=== PATIENT | female | born 1950 | race Asian ===

== ENCOUNTER 2017-08-27 19:40 | Inpatient (IN) | payer MEDICARE ==
[~2017-08-27] VITALS: Ht 152.4 cm; Wt 45.2 kg
[2017-08-27 19:40] VITALS: BP 176/106
[2017-08-27] MEDS ORDERED: METOPROLOL TART25 MG ORAL (20:02)
[2017-08-27] MEDS ORDERED: ESTRING1 EACH VG (20:02)
[2017-08-27] MEDS ORDERED: OMEPRAZOLE20 M3 ORAL (20:02)
[2017-08-27] MEDS ORDERED: TEMAZEPAM30 MG ORAL (20:02)
[2017-08-27] MEDS ORDERED: MIRALAX17 G2 ORAL (20:02)
[2017-08-27] MEDS ORDERED: ATORVASTATIN CA20 MG ORAL (20:02)
[2017-08-27] MEDS ORDERED: PHENYTOIN SODI100 MG ORAL (20:02)
[2017-08-27] MEDS ORDERED: VITAMIN B122500 MCG PO (20:02)
[2017-08-27] MEDS ORDERED: CALCIUM + D3 E1 EACH PO (20:02)
[2017-08-27] MEDS ORDERED: FOSAMAX70 MG ORAL (20:02)
[2017-08-27] MEDS ORDERED: ZYPREXA10 MG ORAL (20:02)
[2017-08-27] MEDS ORDERED: LEVETIRACETAM1000 MG ORAL (20:02)
[2017-08-27] MEDS ORDERED: ASPIRIN81 MG ORAL (20:02)
[2017-08-27] MEDS ORDERED: MELOXICAM7.5 MG PO (20:02)
[2017-08-27] MEDS ORDERED: TAMSULOSIN HCL0.4 MG ORAL (20:02)
[2017-08-27] MEDS ORDERED: DOUBLE ANTIBI28.4 GM TP (20:02)
[2017-08-27] MEDS ORDERED: METFORMIN HCL500 M1 ORAL (20:02)
[2017-08-27] MEDS ORDERED: OXYBUTYNIN CHLOR5 M1 ORAL (20:02)
[2017-08-27] MEDS ORDERED: SUPER B COMPLE150 MG PO (20:02)
[2017-08-27 20:17] LABS: EOSINOPHILS % (AUTO) 1.8 % (0.0-3.0); LYMPHOCYTES % (AUTO) 10.6 % (20.0-45.0); MEAN CORPUSCULAR HEMOGLOBIN 28.9 PG (27.0-31.0); MEAN CORPUSCULAR HGB CONC 31.8 G/DL (32.0-36.0); MEAN CORPUSCULAR VOLUME 91 FL (80-99); MEAN PLATELET VOLUME 4.9 FL (6.5-10.1); MONOCYTES % (AUTO) 6.3 % (1.0-10.0); NEUTROPHILS % (AUTO) 80.3 % (45.0-75.0); PLATELET COUNT 274 K/UL (150-450); RED BLOOD COUNT 3.48 M/UL (4.20-5.40); RED CELL DISTRIBUTION WIDTH 11.7 % (11.6-14.8); WHITE BLOOD COUNT 11.9 K/UL (4.8-10.8)
[2017-08-27] MEDS ORDERED: LORazepam Inj 2mg/ml 1ml IV ONE (20:30)
[2017-08-27 20:48] LABS: TROPONIN I < 0.30 ng/mL (<=0.30)
--- NOTE | 2017-08-27 20:49 | Emergency Room Report ---
History of Present Illness General Chief Complaint: Dyspnea/Respdistress Source: Medical Record Present Illness HPI 67YOF with acute SOB from SNF Patient not providing much HPI In significant distress HPI limited by patient's condition Spoke to Rodney Doc 08/21: na 120 on 08/24: Na 136 History of psychogenic polydipsia Urgent care visit for hypoNa Multiple visits to ICU/hospital hyponatremia Plan was to try water limiting at SNF but patient allegedly finding ways to continue to drink water History of dementia, schizophrenia as well Allergies: Coded Allergies: CLONAZEPAM (Verified Allergy, Unknown, 08/27/17) IBUPROFEN (Verified Allergy, Unknown, 08/27/17) PROPRANOLOL (Verified Allergy, Unknown, 08/27/17) Uncoded Allergies: HYDROCHRIDE (Allergy, Unknown, 08/27/17) Patient History Limited by: medical condition Past Medical History: dementia, other - hyponatremia Past Surgical History: unable to obtain Pertinent Family History: unable to obtain Social History: Denies: smoking, alcohol use, drug use Last Menstrual Period: none Now: No Immunizations: UTD Reviewed Nursing Documentation: PMH: Agreed, PSxH: Agreed Nursing Documentation-PMH Hx Diabetes: Yes - type 2 dm Review of Systems All Other Systems: limited - D/t serious of presentation Physical Exam Vital Signs Date Time Temp Pulse Resp B/P (MAP) Pulse Ox O2 Delivery O2 Flow Rate FiO2 08/27/17 19:32 94.5 88 24 176/102 94 Room Air 08/27/17 19:40 50 Sp02 EP Interpretation: reviewed, abnormal General Appearance: normal inspection, well appearing, no apparent distress, alert, GCS 15, severe distress Head: normocephalic, atraumatic Eyes: bilateral eye PERRL, bilateral eye EOMI ENT: normal ENT inspection, hearing grossly normal, normal voice Neck: normal inspection, full range of motion, supple, no bony tend Respiratory: normal inspection, lungs clear, normal breath sounds, no respiratory distress, no retraction, no wheezing, decreased breath sounds, accessory muscle use, rales Cardiovascular #1: regular rate, rhythm, no edema, JVD Gastrointestinal: normal inspection, normal bowel sounds, non tender, soft, no guarding, no hernia Genitourinary: no CVA tenderness Musculoskeletal: normal inspection, back normal, normal range of motion, Jose' s Sign negative Neurologic: normal inspection, alert, responsive, speech normal Psychiatric: normal inspection, judgement/insight normal, mood/affect normal Skin: normal inspection, normal color, no rash Lymphatic: normal inspection Medical Decision Making Diagnostic Impression: Primary Impression: Dyspnea Qualified Codes: R06.00 - Dyspnea, unspecified Additional Impressions: CHF (congestive heart failure) Qualified Codes: I50.9 - Heart failure, unspecified Hyponatremia Psychogenic polydipsia ER Course Received approval for admission here to ICU by [facility] authorization number Endorsed to Dr Martinez at 930pm Recommended combination of lasix and NS IVF for severe hypoNa and CHF Patient with improved respiration on Bipap Not hypoxic or lethargic. Patent airway Patient likely drank herself into florrid pulm edema/hypoNa from polydisia psychogenic EKG Diagnostic Results Rate: normal Rhythm: NSR ST Segments: no acute changes ASA given to the pt in ED: No Rhythm Strip Diag. Results EP Interpretation: yes Rate: 95 Rhythm: NSR, no PVC's, no ectopy Chest X-Ray Diagnostic Results Chest X-Ray Diagnostic Results : Chest X-Ray Ordered: Yes # of Views/Limited/Complete: 1 View Indication: Shortness of Breath EP Interpretation: Yes Interpretation: no consolidation, no effusion, no pneumothorax, other - Pulm congestion Electronically Signed by: Dr Sanchez Zimmer MD Last Vital Signs Date Time Temp Pulse Resp B/P (MAP) Pulse Ox O2 Delivery O2 Flow Rate FiO2 08/27/17 19:40 97.6 98 29 176/106 100 Bi-pap 50 Status: improved Disposition: ADMITTED INPATIENT Condition: Critical SANCHEZ ZIMMER M.D. Aug 27, 2017 20:49
[2017-08-27 20:51] LABS: ALANINE AMINOTRANSFERASE 18 U/L (3-33); ALBUMIN/GLOBULIN RATIO 1.9 (1.0-2.7); ANION GAP 17 (5-15); ASPARTATE AMINO TRANSFERASE 27 U/L (5-40); CALCIUM 7.9 mg/dL (8.6-10.2); CARBON DIOXIDE 20 mEQ/L (20-30); CHLORIDE 71 mEQ/L (98-107); CREATININE 0.6 mg/dL (0.5-0.9); GLOMERULAR FILTRATION RATE > 60 mL/min (>60); HEMOLYSIS 10; POTASSIUM 4.1 mEQ/L (3.4-4.9); TOTAL PROTEIN 6.1 g/dL (6.6-8.7)
[2017-08-27 20:54] LABS: SODIUM 108 mEQ/L (135-145)
[2017-08-27 21:01] LABS: CKMB 3.8 ng/mL (< 3.8)
[2017-08-27 22:05] VITALS: BP 170/98
[2017-08-27 23:20] VITALS: BP 172/99
[2017-08-27] MEDS ORDERED: Miralax 17gm pkt ORAL PRN (23:30)
[2017-08-27] MEDS ORDERED: Albuterol/Ipratropium 3ml neb HHN PRN (23:30)
[2017-08-28] VITALS (24 sets, daily range): BP systolic 100–185; BP diastolic 2–114
[2017-08-28] MEDS: LORazepam Inj 2mg/ml 1ml IV PRN ×5 (01:47→22:45)
[2017-08-28 06:12] LABS: BASOPHILS % (AUTO) 0.4 % (0.0-2.0); EOSINOPHILS % (AUTO) 0.1 % (0.0-3.0); LYMPHOCYTES % (AUTO) 6.9 % (20.0-45.0); MEAN CORPUSCULAR HEMOGLOBIN 31.3 PG (27.0-31.0); MEAN CORPUSCULAR HGB CONC 35.6 G/DL (32.0-36.0); MEAN CORPUSCULAR VOLUME 88 FL (80-99); MEAN PLATELET VOLUME 5.4 FL (6.5-10.1); MONOCYTES % (AUTO) 9.8 % (1.0-10.0); NEUTROPHILS % (AUTO) 82.8 % (45.0-75.0); PLATELET COUNT 297 K/UL (150-450); RED BLOOD COUNT 3.66 M/UL (4.20-5.40); RED CELL DISTRIBUTION WIDTH 11.4 % (11.6-14.8); WHITE BLOOD COUNT 11.1 K/UL (4.8-10.8)
[2017-08-28 06:24] LABS: ANION GAP 12 (5-15); CALCIUM 8.2 mg/dL (8.6-10.2); CARBON DIOXIDE 26 mEQ/L (20-30); CHLORIDE 79 mEQ/L (98-107); CREATININE 0.4 mg/dL (0.5-0.9); GLOMERULAR FILTRATION RATE > 60 mL/min (>60); HEMOLYSIS 0; PHOSPHORUS 2.9 mg/dL (2.5-4.8); POTASSIUM 3.2 mEQ/L (3.4-4.9)
[2017-08-28 06:25] LABS: ALANINE AMINOTRANSFERASE 18 U/L (3-33); ALBUMIN/GLOBULIN RATIO 1.8 (1.0-2.7); ANION GAP 13 (5-15); ASPARTATE AMINO TRANSFERASE 31 U/L (5-40); CALCIUM 8.3 mg/dL (8.6-10.2); CARBON DIOXIDE 26 mEQ/L (20-30); CHLORIDE 80 mEQ/L (98-107); CREATININE 0.4 mg/dL (0.5-0.9); GLOMERULAR FILTRATION RATE > 60 mL/min (>60); HEMOLYSIS 0; POTASSIUM 3.2 mEQ/L (3.4-4.9); TOTAL PROTEIN 6.2 g/dL (6.6-8.7); TROPONIN I < 0.30 ng/mL (<=0.30)
[2017-08-28 06:26] LABS: URIC ACID 2.3 mg/dL (3.0-7.5)
[2017-08-28 06:30] LABS: APPEARANCE,URINE CLEAR; KETONES,URINE NEGATIVE (NEGATIVE); LEUKOCYTE ESTERASE ,URINE NEGATIVE (NEGATIVE); NITRITE,URINE NEGATIVE (NEGATIVE); PH,URINE 8 (4.5-8.0); PROTEIN,URINE NEGATIVE (NEGATIVE); UROBILINOGEN,URINE NORMAL MG/DL (0.0-1.0)
[2017-08-28 06:31] LABS: SODIUM 117 mEQ/L (135-145)
[2017-08-28 06:39] LABS: SODIUM 119 mEQ/L (135-145)
[2017-08-28 06:41] LABS: THYROID STIMULATING HORMONE 0.228 uIU/mL (0.300-4.500)
[2017-08-28 07:00] LABS: BACTERIA,URINE OCCASIONAL /HPF; SQUAMOUS EPITHELIAL CELL,UR OCCASIONAL /LPF (NONE/OCC); WBC,URINE 0-2 /HPF (0 - 2)
--- NOTE | 2017-08-28 07:41 | Pulmonolgy Critical Care Note ---
Critical Care - Asmt/Plan Problems: (1) Acute encephalopathy (2) Hyponatremia (3) Psychogenic polydipsia (4) Urinary retention Respiratory: monitor respiratory rate, adjust FIO2 Cardiac: continue to monitor HR/BP Renal: F/U I&O, other - keep lasix Gastrointestinal: start feedings Endocrine: monitor blood sugar Hematologic: monitor H/H Neurologic: PRN Ativan Affect: PRN ativan Prophylaxis: Protonix Time Spent (Minutes): 40 Notes Reviewed: architectural superintendent Discussed with: nurses, consultants, disease case managerreal estate asset manager - Objective Last 24 Hour Vital Signs Date Time Temp Pulse Resp B/P (MAP) Pulse Ox O2 Delivery O2 Flow Rate FiO2 08/28/17 07:00 83 20 115/44 100 2.0 08/28/17 06:00 111 28 161/65 100 2.0 08/28/17 05:00 91 22 155/51 100 2.0 08/28/17 04:00 96 08/28/17 04:00 98.8 93 21 132/49 100 2.0 08/28/17 03:00 102 29 158/48 100 2.0 08/28/17 02:00 112 27 180/74 99 2.0 08/28/17 01:30 100 2.0 28 08/28/17 01:00 110 36 185/88 98 2.0 08/28/17 00:05 121 08/28/17 00:05 97.9 121 35 157/114 98 2.0 08/27/17 23:50 97.8 98 29 172/99 100 14.0 50 08/27/17 23:30 90 29 100 Facial 50 08/27/17 23:20 98 29 172/99 100 14.0 50 08/27/17 22:06 92 28 100 Facial 50 08/27/17 22:05 97.8 84 28 170/98 100 14.0 50 08/27/17 20:36 100 30 100 Facial 50 08/27/17 19:45 14.0 50 08/27/17 19:40 97.6 98 29 176/106 100 Bi-pap 50 08/27/17 19:40 98 29 Bi-pap 50 08/27/17 19:32 94.5 88 24 176/102 94 Room Air Status: awake Condition: critical HEENT: atraumatic Neck: full ROM Heart: HR/BP stable Abdomen: feeding tube Extremities: no C/C/E, edema Critical Care - Subjective ROS Limited/Unobtainable: Yes ICU Day: 1 Interval Events: 67 year old female with history of dementia, schizophrenia, psychogenic polydipsia with acute SOB from SNF. She was not cooperative in providing history. She was admitted to ICU for metabolic encephalopathy caused by hyponatremia. Condition: critical EKG Rhythm: Sinus Rhythm FI02: 28 Sputum Amount: None Fluids: d5 NS 100 CXR: cephalization, IZZY Labs: Laboratory Tests Test 08/27/17 19:43 08/28/17 04:00 08/28/17 04:50 White Blood Count 11.9 K/UL (4.8-10.8) H 11.1 K/UL (4.8-10.8) H Red Blood Count 3.48 M/UL (4.20-5.40) L 3.66 M/UL (4.20-5.40) L Hemoglobin 10.1 G/DL (12.0-16.0) L 11.5 G/DL (12.0-16.0) L Hematocrit 31.7 % (37.0-47.0) L 32.2 % (37.0-47.0) L Mean Corpuscular Volume 91 FL (80-99) 88 FL (80-99) Mean Corpuscular Hemoglobin 28.9 PG (27.0-31.0) 31.3 PG (27.0-31.0) H Mean Corpuscular Hemoglobin Concent 31.8 G/DL (32.0-36.0) L 35.6 G/DL (32.0-36.0) Red Cell Distribution Width 11.7 % (11.6-14.8) 11.4 % (11.6-14.8) L Platelet Count 274 K/UL (150-450) 297 K/UL (150-450) Mean Platelet Volume 4.9 FL (6.5-10.1) L 5.4 FL (6.5-10.1) L Neutrophils (%) (Auto) 80.3 % (45.0-75.0) H 82.8 % (45.0-75.0) H Lymphocytes (%) (Auto) 10.6 % (20.0-45.0) L 6.9 % (20.0-45.0) L Monocytes (%) (Auto) 6.3 % (1.0-10.0) 9.8 % (1.0-10.0) Eosinophils (%) (Auto) 1.8 % (0.0-3.0) 0.1 % (0.0-3.0) Basophils (%) (Auto) 1.0 % (0.0-2.0) 0.4 % (0.0-2.0) Sodium Level 108 mEQ/L (135-145) *L 117 mEQ/L (135-145) *L Potassium Level 4.1 mEQ/L (3.4-4.9) 3.2 mEQ/L (3.4-4.9) L Chloride Level 71 mEQ/L (98-107) L 79 mEQ/L (98-107) L Carbon Dioxide Level 20 mEQ/L (20-30) 26 mEQ/L (20-30) Anion Gap 17 (5-15) H 12 (5-15) Blood Urea Nitrogen 5 mg/dL (7-23) L 7 mg/dL (7-23) Creatinine 0.6 mg/dL (0.5-0.9) 0.4 mg/dL (0.5-0.9) L Estimat Glomerular Filtration Rate > 60 mL/min (>60) > 60 mL/min (>60) Glucose Level 196 mg/dL (74-106) H 136 mg/dL (74-106) H Calcium Level 7.9 mg/dL (8.6-10.2) L 8.2 mg/dL (8.6-10.2) L Total Bilirubin 0.2 mg/dL (0.0-1.2) 0.4 mg/dL (0.0-1.2) Aspartate Amino Transf (AST/SGOT) 27 U/L (5-40) 31 U/L (5-40) Alanine Aminotransferase (ALT/SGPT) 18 U/L (3-33) 18 U/L (3-33) Alkaline Phosphatase 115 U/L (35-104) H 113 U/L (35-104) H Total Creatine Kinase 161 U/L (26-140) H Creatine Kinase MB 3.8 ng/mL (< 3.8) Creatine Kinase MB Relative Index 2.3 Troponin I < 0.30 ng/mL (<=0.30) < 0.30 ng/mL (<=0.30) Pro-B-Type Natriuretic Peptide 1444 pg/mL (0-125) H Pending Total Protein 6.1 g/dL (6.6-8.7) L 6.2 g/dL (6.6-8.7) L Albumin 4.0 g/dL (3.5-5.2) 3.9 g/dL (3.5-5.2) Globulin 2.1 g/dL 2.2 g/dL Albumin/Globulin Ratio 1.9 (1.0-2.7) 1.8 (1.0-2.7) Urine Color Pale yellow Urine Appearance Clear Urine pH 8 (4.5-8.0) Urine Specific [place] 1.010 (1.005-1.035) Urine Protein Negative (NEGATIVE) Urine Glucose (UA) Negative (NEGATIVE) Urine Ketones Negative (NEGATIVE) Urine Occult Blood 2+ (NEGATIVE) H Urine Nitrite Negative (NEGATIVE) Urine Bilirubin Negative (NEGATIVE) Urine Urobilinogen Normal MG/DL (0.0-1.0) Urine Leukocyte Esterase Negative (NEGATIVE) Urine RBC 2-4 /HPF (0 - 2) H Urine WBC 0-2 /HPF (0 - 2) Urine Squamous Epithelial Cells Occasional /LPF Urine Bacteria Occasional /HPF (NONE) Urine Osmolality Pending Urine Random Sodium Pending Osmolality Pending Uric Acid 2.3 mg/dL (3.0-7.5) L Phosphorus Level 2.9 mg/dL (2.5-4.8) Magnesium Level 1.6 mg/dL (1.7-2.5) L Thyroid Stimulating Hormone (TSH) 0.228 uIU/mL (0.300-4.500) Free Thyroxine 1.87 ng/dL (0.86-1.85) H Free Triiodothyronine Pending Cortisol Pending ARIC DOE Aug 28, 2017 07:40
[2017-08-28] MEDS: Heparin 5000 units/ml inj SUBQ SCH ×2 (08:59→20:42)
[2017-08-28] MEDS ORDERED: KCl 10% 40mEq/30ml liquid ORAL ONE (09:00)
[2017-08-28] MEDS ORDERED: Pantoprazole Inj IVP SCH (09:00)
--- NOTE | 2017-08-28 11:25 | Diagnostic Imaging Report ---
Indication: Dyspnea Comparison: None A single view chest radiograph was obtained. Findings: Parenchymal opacities are noted in the upper lobes bilaterally. Suspect chronic disease which may be confirmed with review of prior studies. Upper lobe infiltrate is not excluded. The heart is enlarged. Aorta is mildly enlarged and calcified. The bones are osteopenic. Impression: Bilateral upper lobe infiltrates versus chronic disease or scarring. Comparison to prior studies and clinical correlation recommended
--- NOTE | 2017-08-28 11:54 | Consultation ---
Consult Note Consult Note asked to eval for low Na 67YOF with acute SOB from SNF Patient not providing much HPI In significant distress HPI limited by patient's condition Spoke to [place] Doc 08/21: na 120 on 08/24: Na 136 History of psychogenic polydipsia Urgent care visit for hypoNa Multiple visits to ICU/hospital hyponatremia Plan was to try water limiting at SNF but patient allegedly finding ways to continue to drink water History of dementia, schizophrenia as well Allergies: CLONAZEPAM (Verified Allergy, Unknown, 08/27/17) IBUPROFEN (Verified Allergy, Unknown, 08/27/17) PROPRANOLOL (Verified Allergy, Unknown, 08/27/17) HYDROCHRIDE (Allergy, Unknown, 08/27/17) examined data reviewed Assessment/Plan Low Na likely Psychogenic vs SIADH DM High Cholestrol Psych disease Urinary retention GERD Sz disorders been on dilantin and keppra Plan: 3% saline- no LASIX PO fluid restriction Monitor lytes K supplement ASTON DILLON Aug 28, 2017 11:54
[2017-08-28 12:17] LABS: CHOLESTEROL/HDL RATIO 1.7 (3.3-4.4)
[2017-08-28] MEDS ORDERED: NaCl 3% 500ml 500 ML IV ONE (12:30)
--- NOTE | 2017-08-28 12:31 | Diagnostic Imaging Report ---
APPROVED REPORT CPT Code: 32271 Present Symptoms Shortness of breath Comments: R/O DVT BILATERAL: Imaging reveals a patent deep venous system bilaterally. There is no evidence of thrombus within the femoral, popliteal or tibial segments. The greater saphenous veins are also within normal limits. Doppler indicates normal spontaneous flow within these segments.
[2017-08-28] MEDS ORDERED: LORazepam Inj 2mg/ml 1ml IV PRN (15:24)
--- NOTE | 2017-08-28 15:55 | Cardiology Progress Note ---
Assessment/Plan Assessment/Plan need electrolyte repleated bb is remain tachy adjust dose fo synthoid as my be hyperthyroid now no sure if "chf" [id number] Objective Last 24 Hour Vital Signs Date Time Temp Pulse Resp B/P (MAP) Pulse Ox O2 Delivery O2 Flow Rate FiO2 08/28/17 15:00 99 20 132/27 100 Nasal Cannula 2.0 08/28/17 14:00 99 20 158/86 100 Nasal Cannula 2.0 08/28/17 13:00 81 20 134/47 100 Nasal Cannula 2.0 08/28/17 12:00 98.2 96 20 126/64 100 Nasal Cannula 2.0 08/28/17 12:00 89 08/28/17 11:00 94 20 100/2 100 Nasal Cannula 2.0 08/28/17 10:00 88 20 128/63 100 Nasal Cannula 2.0 08/28/17 09:00 86 20 121/47 100 Nasal Cannula 2.0 08/28/17 08:00 81 08/28/17 08:00 98.1 79 21 124/47 100 Nasal Cannula 2.0 08/28/17 07:44 Nasal Cannula 2.0 28 08/28/17 07:44 100 Nasal Cannula 2.0 28 08/28/17 07:43 81 18 Nasal Cannula 2.0 28 08/28/17 07:00 83 20 115/44 100 2.0 08/28/17 06:00 111 28 161/65 100 2.0 08/28/17 05:00 91 22 155/51 100 2.0 08/28/17 04:00 96 08/28/17 04:00 98.8 93 21 132/49 100 2.0 08/28/17 03:00 102 29 158/48 100 2.0 08/28/17 02:00 112 27 180/74 99 2.0 08/28/17 01:30 100 2.0 28 08/28/17 01:00 110 36 185/88 98 2.0 08/28/17 00:05 121 08/28/17 00:05 97.9 121 35 157/114 98 2.0 08/27/17 23:50 97.8 98 29 172/99 100 14.0 50 08/27/17 23:30 90 29 100 Facial 50 08/27/17 23:20 98 29 172/99 100 14.0 50 08/27/17 22:06 92 28 100 Facial 50 08/27/17 22:05 97.8 84 28 170/98 100 14.0 50 08/27/17 20:36 100 30 100 Facial 50 08/27/17 19:45 14.0 50 08/27/17 19:40 97.6 98 29 176/106 100 Bi-pap 50 08/27/17 19:40 98 29 Bi-pap 50 08/27/17 19:32 94.5 88 24 176/102 94 Room Air Intake and Output 08/28/17 08/29/17 19:00 07:00 Intake Total 315 ml Output Total 1820 ml Balance -1505 ml Intake IV Total 315 ml Output Urine Total 1820 ml # Bowel Movements 4 Laboratory Tests Test 08/27/17 19:43 08/28/17 04:00 08/28/17 04:50 White Blood Count 11.9 K/UL (4.8-10.8) H 11.1 K/UL (4.8-10.8) H Red Blood Count 3.48 M/UL (4.20-5.40) L 3.66 M/UL (4.20-5.40) L Hemoglobin 10.1 G/DL (12.0-16.0) L 11.5 G/DL (12.0-16.0) L Hematocrit 31.7 % (37.0-47.0) L 32.2 % (37.0-47.0) L Mean Corpuscular Volume 91 FL (80-99) 88 FL (80-99) Mean Corpuscular Hemoglobin 28.9 PG (27.0-31.0) 31.3 PG (27.0-31.0) H Mean Corpuscular Hemoglobin Concent 31.8 G/DL (32.0-36.0) L 35.6 G/DL (32.0-36.0) Red Cell Distribution Width 11.7 % (11.6-14.8) 11.4 % (11.6-14.8) L Platelet Count 274 K/UL (150-450) 297 K/UL (150-450) Mean Platelet Volume 4.9 FL (6.5-10.1) L 5.4 FL (6.5-10.1) L Neutrophils (%) (Auto) 80.3 % (45.0-75.0) H 82.8 % (45.0-75.0) H Lymphocytes (%) (Auto) 10.6 % (20.0-45.0) L 6.9 % (20.0-45.0) L Monocytes (%) (Auto) 6.3 % (1.0-10.0) 9.8 % (1.0-10.0) Eosinophils (%) (Auto) 1.8 % (0.0-3.0) 0.1 % (0.0-3.0) Basophils (%) (Auto) 1.0 % (0.0-2.0) 0.4 % (0.0-2.0) Sodium Level 108 mEQ/L (135-145) *L 117 mEQ/L (135-145) *L Potassium Level 4.1 mEQ/L (3.4-4.9) 3.2 mEQ/L (3.4-4.9) L Chloride Level 71 mEQ/L (98-107) L 79 mEQ/L (98-107) L Carbon Dioxide Level 20 mEQ/L (20-30) 26 mEQ/L (20-30) Anion Gap 17 (5-15) H 12 (5-15) Blood Urea Nitrogen 5 mg/dL (7-23) L 7 mg/dL (7-23) Creatinine 0.6 mg/dL (0.5-0.9) 0.4 mg/dL (0.5-0.9) L Estimat Glomerular Filtration Rate > 60 mL/min (>60) > 60 mL/min (>60) Glucose Level 196 mg/dL (74-106) H 136 mg/dL (74-106) H Calcium Level 7.9 mg/dL (8.6-10.2) L 8.2 mg/dL (8.6-10.2) L Total Bilirubin 0.2 mg/dL (0.0-1.2) 0.4 mg/dL (0.0-1.2) Aspartate Amino Transf (AST/SGOT) 27 U/L (5-40) 31 U/L (5-40) Alanine Aminotransferase (ALT/SGPT) 18 U/L (3-33) 18 U/L (3-33) Alkaline Phosphatase 115 U/L (35-104) H 113 U/L (35-104) H Total Creatine Kinase 161 U/L (26-140) H Creatine Kinase MB 3.8 ng/mL (< 3.8) Creatine Kinase MB Relative Index 2.3 Troponin I < 0.30 ng/mL (<=0.30) < 0.30 ng/mL (<=0.30) Pro-B-Type Natriuretic Peptide 1444 pg/mL (0-125) H 4902 pg/mL (0-125) H Total Protein 6.1 g/dL (6.6-8.7) L 6.2 g/dL (6.6-8.7) L Albumin 4.0 g/dL (3.5-5.2) 3.9 g/dL (3.5-5.2) Globulin 2.1 g/dL 2.2 g/dL Albumin/Globulin Ratio 1.9 (1.0-2.7) 1.8 (1.0-2.7) Urine Color Pale yellow Urine Appearance Clear Urine pH 8 (4.5-8.0) Urine Specific [place] 1.010 (1.005-1.035) Urine Protein Negative (NEGATIVE) Urine Glucose (UA) Negative (NEGATIVE) Urine Ketones Negative (NEGATIVE) Urine Occult Blood 2+ (NEGATIVE) H Urine Nitrite Negative (NEGATIVE) Urine Bilirubin Negative (NEGATIVE) Urine Urobilinogen Normal MG/DL (0.0-1.0) Urine Leukocyte Esterase Negative (NEGATIVE) Urine RBC 2-4 /HPF (0 - 2) H Urine WBC 0-2 /HPF (0 - 2) Urine Squamous Epithelial Cells Occasional /LPF Urine Bacteria Occasional /HPF (NONE) Urine Osmolality 127 mOsm/kg (429-449) L Urine Random Sodium 40 mmol/L Osmolality 244 mOsm/kg (297-317) L Uric Acid 2.3 mg/dL (3.0-7.5) L Phosphorus Level 2.9 mg/dL (2.5-4.8) Magnesium Level 1.6 mg/dL (1.7-2.5) L Triglycerides Level 51 mg/dL (< 150) Cholesterol Level 158 mg/dL (< 200) LDL Cholesterol 54 mg/dL (60-99) L HDL Cholesterol 94 mg/dL (> 60) H Cholesterol/HDL Ratio 1.7 (3.3-4.4) L Thyroid Stimulating Hormone (TSH) 0.228 uIU/mL (0.300-4.500) Free Thyroxine 1.87 ng/dL (0.86-1.85) H Free Triiodothyronine Pending Cortisol Pending Phenytoin (Dilantin) Level 12.2 ug/mL (10-20) SILAS CLOUD Aug 28, 2017 15:55
--- NOTE | 2017-08-28 16:18 | History & Physical ---
History and Physical History & Physicial Dictated for Int Med-Dr Martinez no. [id number]. GAUTAM LOERA Aug 28, 2017 16:18
[2017-08-28 16:40] LABS: ALANINE AMINOTRANSFERASE 19 U/L (3-33); ALBUMIN/GLOBULIN RATIO 1.9 (1.0-2.7); ANION GAP 17 (5-15); ASPARTATE AMINO TRANSFERASE 48 U/L (5-40); CALCIUM 8.6 mg/dL (8.6-10.2); CARBON DIOXIDE 23 mEQ/L (20-30); CHLORIDE 90 mEQ/L (98-107); CREATININE 0.6 mg/dL (0.5-0.9); GLOMERULAR FILTRATION RATE > 60 mL/min (>60); HEMOLYSIS 100; POTASSIUM 3.6 mEQ/L (3.4-4.9); SODIUM 130 mEQ/L (135-145); TOTAL PROTEIN 6.1 g/dL (6.6-8.7)
--- NOTE | 2017-08-28 17:28 | Cardiology Report ---
APPROVED REPORT EXAM: Two-dimensional and M-mode echocardiogram with Doppler and color Doppler. INDICATION Left ventricular function M-Mode DIMENSIONS IVSd1.2 (0.7-1.1cm)Left Atrium (MM)3.8 (1.6-4.0cm) LVDd4.0 (3.5-5.6cm)Aortic Root2.6 (2.0-3.7cm) PWd1.3 (0.7-1.1cm)Aortic Cusp Exc.1.7 (1.5-2.0cm) LVDs2.7 (2.5-4.0cm) PWs1.3 cm Normal left ventricular chamber size, systolic function and wall motion. Left ventricular ejection fraction estimated to be 65-70%. Borderline left ventricular hypertrophy. Small posterior pericardial effusion. Mild bi-atrial enlargement by 2D. Focal aortic valve sclerosis with adequate cusp excursion. Thickened mitral valve leaflets with normal excursion. Mild mitral annulus and aortic root calcification. Pulmonic valve not visualized. Normal tricuspid valve structure. IVC is normal in size and collapsible with respiration. A color flow and spectral Doppler study was performed and revealed: No aortic regurgitation. No mitral regurgitation. Mitral diastolic velocities suggest reduced left ventricular relaxation c/w diastolic dysfunction grade 1. Trace tricuspid regurgitation. Tricuspid systolic velocities suggests peak right ventricular systolic pressure of 25 mmHg
--- NOTE | 2017-08-28 18:00 | Cardiology Report ---
APPROVED REPORT EKG Measurement Heart [id number] Normal sinus rhythm Possible Left atrial enlargement Borderline ECG
[2017-08-28] MEDS ORDERED: Metoprolol 5mg/5ml Inj IVP PRN (18:15)
[2017-08-29] VITALS: BP 143/57
[2017-08-29] MEDS: LORazepam Inj 2mg/ml 1ml IV PRN ×4 (00:46→17:19)
--- NOTE | 2017-08-29 01:45 | History and Physical Report ---
DATE OF ADMISSION: 08/27/2017 Chief Complaint: The patient is a 67-year-old female, presents with chief complaint of shortness of breath. History Of Present Illness: The patient is a resident of [facility]. According to staff at [facility], the patient became short of breath on 08/27/2017. The patient herself is unable to contribute much to the history and physical. Much of the history and physical is taken from the patient's chart. The patient presented to [facility] emergency room. The patient is admitted with shortness of breath and probable pneumonia. PAST MEDICAL HISTORY: Significant for, 1. History of seizure disorder. 2. Hypertension. 3. Diabetes type 2. 4. Hypercholesterolemia. 5. Hypothyroidism PAST SURGICAL HISTORY: Unknown. CURRENT MEDICATIONS: 1. Atorvastatin 10 mg 1 tablet p.o. daily. 2. Meloxicam 7.5 mg 1 tablet p.o. daily. 3. Vitamin D3 400 international units 1 tablet p.o. twice daily. 4. Metoprolol 25 mg one-half tablet p.o. twice daily. 5. Dilantin 100 mg 1 tablet p.o. 3 times daily. 6. Metformin 500 mg 1 tablet p.o. twice daily. 7. Keppra 1000 mg p.o. twice daily. 8. Oxybutynin 5 mg 1 tablet p.o. daily. 9. Estring applied every 3 months. 10. Omeprazole 20 mg 1 tablet p.o. twice daily. 11. Flomax 0.4 mg 1 tablet p.o. daily. 12. Levoxyl 0.112 mg 1-1/2 tablets p.o. daily. ALLERGIES: 1. Clonazepam. 2. Hydrochlorothiazide. 3. Ibuprofen. 4. Propranolol. SOCIAL HISTORY: Tobacco and alcohol use is denied. Review Of Systems: Unable to assess secondary to the patient's mental status. PHYSICAL EXAMINATION: General: The patient is a well-developed, well-nourished, [place] female in no apparent distress. Vital Signs: Temperature 97.8 degrees, respirations 20, pulse 84, and blood pressure 170/98. HEENT: Eyes, pupils are equal and responsive to light and accommodation. Extraocular movements are intact. NECK: Supple without lymphadenopathy. Chest: Lungs are clear to auscultation bilaterally without wheezes or rales. Decreased breath sounds bilateral at lower bases with crackles, otherwise, clear to auscultation without wheezes or rales. Cardiovascular: Regular rhythm and rate. S1 and S2 are normal without murmurs, rubs, or gallops. Abdomen: Soft, nontender, and nondistended. Positive bowel sounds. No evidence of hepatosplenomegaly. Currently, no rebound or guarding noted. EXTREMITIES: Negative for clubbing, cyanosis, or edema. RECTAL/GENITAL: Deferred. Neurologically: Cranial nerves II through XII are grossly intact without focal deficits. Laboratory And Diagnostic Data: Laboratory studies, sodium 119, potassium 3.3, chloride 80, CO2 26, BUN 7, creatinine 0.4, and glucose 138. BNP elevated at 4902. Troponin less than 0.3. Chest x-ray revealed bilateral upper lobe opacities versus chronic disease or scarring. ASSESSMENT: This is a 67-year-old female with, 1. Shortness of breath. 2. Bilateral upper lobe pneumonia. 3. Seizure disorder. 4. Hyponatremia. 5. Hypokalemia. 6. Diabetes type 2. 7. Hypertension. 8. Hypercholesterolemia. 9. Hypothyroidism. TREATMENT: 1. Shortness of breath/bilateral upper lobe pneumonia. A Pulmonary consultation will be obtained with Dr. Amparo Weller. We will follow recommendation of Pulmonary. 2. Seizure disorder. Continue Dilantin and Keppra as above. 3. Hyponatremia/hypokalemia. A Nephrology consultation will be obtained with Dr. Jasso. The patient is currently receiving hypertonic saline. We will follow recommendation of Nephrology. 4. Diabetes type 2. The patient has been placed on a NovoLog sliding scale. 5. Hypertension. The patient is currently hypotensive. Hold antihypertensive medication as above. 6. Hypercholesteremia. 7. Hypothyroidism. Continue Synthroid as above. Juan Marshall M.D. DR: TIM JOB#: [id number] CC:
[2017-08-29] MEDS ORDERED: Albuterol/Ipratropium 3ml neb HHN PRN ×2 (03:30→18:00)
[2017-08-29] MEDS ORDERED: LORazepam Inj 2mg/ml 1ml IV PRN ×3 (03:30→19:00)
[2017-08-29 04:00] VITALS: BP 133/77
[2017-08-29] MEDS ORDERED: Metoprolol 5mg/5ml Inj IVP PRN ×2 (06:15→18:15)
[2017-08-29 08:26] LABS: BASOPHILS % (AUTO) 0.8 % (0.0-2.0); EOSINOPHILS % (AUTO) 1.3 % (0.0-3.0); LYMPHOCYTES % (AUTO) 8.2 % (20.0-45.0); MEAN CORPUSCULAR HEMOGLOBIN 31.8 PG (27.0-31.0); MEAN CORPUSCULAR VOLUME 91 FL (80-99); MEAN PLATELET VOLUME 5.3 FL (6.5-10.1); MONOCYTES % (AUTO) 8.3 % (1.0-10.0); NEUTROPHILS % (AUTO) 81.5 % (45.0-75.0); PLATELET COUNT 284 K/UL (150-450); RED BLOOD COUNT 3.69 M/UL (4.20-5.40); WHITE BLOOD COUNT 6.7 K/UL (4.8-10.8)
[2017-08-29 08:34] VITALS: BP 111/67
[2017-08-29 08:38] LABS: CRP QUANT 10.4 mg/dL (< 0.5); URIC ACID 3.9 mg/dL (3.0-7.5)
[2017-08-29 08:39] LABS: ALANINE AMINOTRANSFERASE 27 U/L (3-33); ALBUMIN/GLOBULIN RATIO 1.5 (1.0-2.7); ANION GAP 20 (5-15); ASPARTATE AMINO TRANSFERASE 95 U/L (5-40); CALCIUM 8.1 mg/dL (8.6-10.2); CARBON DIOXIDE 18 mEQ/L (20-30); CHLORIDE 101 mEQ/L (98-107); CREATININE 0.5 mg/dL (0.5-0.9); GLOMERULAR FILTRATION RATE > 60 mL/min (>60); HEMOLYSIS 1; MAGNESIUM 2.3 mg/dL (1.7-2.5); PHOSPHORUS 2.6 mg/dL (2.5-4.8); POTASSIUM 3.1 mEQ/L (3.4-4.9); SODIUM 139 mEQ/L (135-145); TOTAL PROTEIN 6.1 g/dL (6.6-8.7)
--- NOTE | 2017-08-29 08:47 | Consultation ---
DATE OF CONSULTATION: 08/28/2017 CARDIOLOGY CONSULTATION REFERRING PHYSICIAN: Riley Martinez M.D. REASON FOR REFERRAL: Congestive heart failure. History Of Present Illness: This is a very unfortunate female who is apparently a resident of a convalescent facility. The patient is quite confused and unable to provide any meaningful history. Information was obtained from review of the patient's chart. The patient has series of medical problems, who has been admitted to the hospital because of shortness of breath, I believe. The chart indicates the patient was brought in from a convalescent facility because of shortness of breath. The patient was unable to provide much in terms of history and was felt to be in significant respiratory distress. On 08/21/2017, the patient was reportedly had a sodium of 120 with a history of psychogenic polydipsia and apparently she has had several visits to ICU and hospital for hyponatremia and even though apparently tried to limit her fluid intake at convalescent facility, but allegedly finding ways to continue drinking water. Therefore, she was admitted to the hospital because of congestive heart failure. I have been able locate some records from [facility] where she was hospitalized back in 2013. At that time, she had a ejection fraction low normal at 50% and she was admitted because of altered mental status secondary to hepatic encephalopathy secondary to severe hyponatremia and secondary polydipsia. There is also a history of osteoporosis, diabetes mellitus, dyslipidemia, hypothyroidism, and mild elevation of cardiac enzymes at that time. She has a history of paranoid schizophrenia and a history of jaw reconstruction surgery in 2001, removal of ovaries as well as hysterectomy. ALLERGIES: She is allergic to ibuprofen and Inderal. Social History: She used to smoke one pack of cigarettes per day for 50 years and subsequently lower than that. She is at the convalescent facility at the present time and basically in psychiatric board and care facility. Review Of Systems: Unable to obtain at the present time. The patient complains only of the fact that she is unable to urinate, although she is putting down much urine in the Leon catheter. PHYSICAL EXAMINATION: General: Shows to be elderly female, appears to be rather dry in oral mucosa, confused and agitated. NECK: Supple. No jugular venous distention. LUNGS: Bilateral crackles, left greater than right. Cardiac: Regular rhythm and tachycardic with frequent ectopic beats. Holosystolic regurgitant murmur is noted at the apex. ABDOMEN: Soft and nontender. Positive bowel sounds. EXTREMITY: There is no clubbing and no significant edema. Neurologically: Confused, but responsive and communicates to a degree. Laboratory And Diagnostic Data: White count of 11.1, hemoglobin 11.5, and platelet count 297. Sodium is 117, potassium 3.2, chloride 79, bicarbonate 26, BUN of 7, creatinine 0.4 and glucose of 138. Calcium is 8.2. Phosphorus of 2.9. Cardiac enzymes two sets are negative. ProBNP of 4900, up from 1400 yesterday. LDL of 54, HDL of 94 and TSH was 0.228, free T4 was 1.87 and free T3 is not available yet. Cortisol no results available yet. Her urine was 0 to 2 WBCs and his urine osmolality was 127 with urine sodium of 40. Imaging includes a chest x-ray that was performed shows upper lobe infiltrates with chronic changes and scarring and heart is enlarged. Aorta is mildly enlarged and calcified. The venous duplex has been performed, no evidence of deep venous thrombosis. EKG performed earlier shows sinus rhythm with normal QRS axis and possible left atrial enlargement, otherwise no other significant abnormalities. Her echocardiogram preliminary shows normal ejection fraction with mild diastolic relaxation abnormality. Telemetry data shows sinus with now having several PVCs at times back to back. ASSESSMENT AND PLAN: 1. Hyponatremia. 2. Psychogenic polydipsia. 3. Premature ventricular complexes. 4. Electrolyte abnormalities. 5. Questionable heart failure. 6. History of paranoid schizophrenia. 7. Osteoporosis. 8. Diabetes mellitus. 9. Hypothyroidism, now possibly hyperthyroid. Dr. Martinez, this patient was seen in cardiac consultation. The patient is quite confused and unable to provide history information. Review of the data indicates that the patient likely has several premature ventricular complexes, sometimes couplets, sometimes appears to possibly related to profound electrolyte abnormalities including abnormal potassium and magnesium. Potassium and magnesium should be supplemented. The patient may require administration of beta-blockers if remains tachycardic. She is on free-water restriction apparently. Her sodium unfortunately is not any better, she will require hypertonic saline if her sodium continues to decrease. The echocardiogram has been performed and I will follow those records. Further recommendations would include an re-evaluation for possibility of heart failure in the short term period of time. Venous duplex study was negative. I will follow the patient along with you. Pb Mahmood M.D. DR: COBY JOB#: [id number] CC:
[2017-08-29] MEDS ORDERED: Heparin 5000 units/ml inj SUBQ SCH (09:00)
[2017-08-29] MEDS ORDERED: Pantoprazole Inj IVP SCH (09:00)
[2017-08-29 09:25] LABS: TROPONIN I < 0.30 ng/mL (<=0.30)
[2017-08-29] MEDS ORDERED: Tubing Blood Filter IV ONE (10:40)
--- NOTE | 2017-08-29 11:18 | Diagnostic Imaging Report ---
Indication: Dyspnea Comparison: August 27, 2017 A single view chest radiograph was obtained. Findings: Heart is enlarged. Aorta is calcified. Mild interstitial edema may be present centrally. Vague Upper lobe densities are noted especially on the right. However, disease appears less apparent on the current study. Impression: Upper lobe infiltrates are less apparent on the current exam although there is probably some residual disease.
--- NOTE | 2017-08-29 11:43 | General Progress Note ---
Assessment/Plan Status: stable Status Narrative Na now WNL Assessment/Plan Low Na likely Psychogenic vs SIADH DM High Cholestrol Psych disease Urinary retention GERD Sz disorders been on dilantin and keppra Plan: per consultants adjust psych meds no LASIX PO fluid restriction Monitor lytes K supplement resume dilantin Subjective ROS Limited/Unobtainable: No Constitutional: Reports: malaise Allergies: Coded Allergies: CLONAZEPAM (Verified Allergy, Unknown, 08/27/17) HYDROCHLOROTHIAZIDE (Verified Allergy, Unknown, 08/27/17) IBUPROFEN (Verified Allergy, Unknown, 08/27/17) PROPRANOLOL (Verified Allergy, Unknown, 08/27/17) Objective Last 24 Hour Vital Signs Date Time Temp Pulse Resp B/P (MAP) Pulse Ox O2 Delivery O2 Flow Rate FiO2 08/29/17 08:34 97.2 92 20 111/67 98 Room Air 08/29/17 08:14 97 Nasal Cannula 2.0 28 08/29/17 08:14 Nasal Cannula 2.0 28 08/29/17 08:14 98 18 Nasal Cannula 2.0 28 08/29/17 04:00 98.1 91 22 133/77 97 Nasal Cannula 2.0 08/29/17 04:00 97 08/29/17 00:00 97.9 104 20 143/57 98 Room Air 08/29/17 00:00 101 08/28/17 23:00 86 20 129/30 98 Nasal Cannula 2.0 08/28/17 22:00 106 20 120/30 98 Nasal Cannula 2.0 08/28/17 21:00 104 20 110/30 98 Nasal Cannula 2.0 08/28/17 20:00 108 08/28/17 20:00 98.0 121 20 148/71 99 Nasal Cannula 2.0 08/28/17 19:30 Nasal Cannula 2.0 28 08/28/17 19:30 102 18 Nasal Cannula 2.0 28 08/28/17 19:30 98 Nasal Cannula 2.0 28 08/28/17 19:13 135 153/58 08/28/17 19:00 121 20 153/58 99 Nasal Cannula 2.0 08/28/17 18:00 114 20 140/82 99 Nasal Cannula 2.0 08/28/17 17:00 101 20 113/45 99 Nasal Cannula 2.0 08/28/17 16:00 98 08/28/17 16:00 98.1 96 20 127/59 100 Nasal Cannula 2.0 08/28/17 15:00 99 20 132/27 100 Nasal Cannula 2.0 08/28/17 14:00 99 20 158/86 100 Nasal Cannula 2.0 08/28/17 13:00 81 20 134/47 100 Nasal Cannula 2.0 08/28/17 12:00 98.2 96 20 126/64 100 Nasal Cannula 2.0 08/28/17 12:00 89 Intake and Output 08/29/17 08/30/17 19:00 07:00 Intake Total 120 ml Balance 120 ml Intake Oral 120 ml Laboratory Tests 08/28/17 15:54: Sodium Level 130#L, Potassium Level 3.6, Chloride Level 90L, Carbon Dioxide Level 23, Anion Gap 17H, Blood Urea Nitrogen 6L, Creatinine 0.6, Estimat Glomerular Filtration Rate > 60, Glucose Level 86, Calcium Level 8.6, Total Bilirubin 0.5, Aspartate Amino Transf (AST/SGOT) 48H, Alanine Aminotransferase ( ALT/SGPT) 19, Alkaline Phosphatase 108H, Total Protein 6.1L, Albumin 4.0, Globulin 2.1, Albumin/Globulin Ratio 1.9 08/29/17 07:54: Sodium Level 139, Potassium Level 3.1L, Chloride Level 101, Carbon Dioxide Level 18L, Anion Gap 20H, Blood Urea Nitrogen 8, Creatinine 0.5, Estimat Glomerular Filtration Rate > 60, Glucose Level 55L, Calcium Level 8.1L, Total Bilirubin 0.4, Aspartate Amino Transf (AST/SGOT) 95H, Alanine Aminotransferase ( ALT/SGPT) 27, Alkaline Phosphatase 94, Total Protein 6.1L, Albumin 3.7, Globulin 2.4, Albumin/Globulin Ratio 1.5, White Blood Count 6.7, Red Blood Count 3.69L, Hemoglobin 11.7L, Hematocrit 33.5L, Mean Corpuscular Volume 91, Mean Corpuscular Hemoglobin 31.8H, Mean Corpuscular Hemoglobin Concent 35.0, Red Cell Distribution Width 12.0, Platelet Count 284, Mean Platelet Volume 5.3L , Neutrophils (%) (Auto) 81.5H, Lymphocytes (%) (Auto) 8.2L, Monocytes (%) (Auto ) 8.3, Eosinophils (%) (Auto) 1.3, Basophils (%) (Auto) 0.8, Uric Acid 3.9, Phosphorus Level 2.6, Magnesium Level 2.3, Troponin I < 0.30, C-Reactive Protein , Quantitative 10.4H, Pro-B-Type Natriuretic Peptide 1486H Height (Feet): 5 Height (Inches): 0.00 Weight (Pounds): 102 General Appearance: no apparent distress Cardiovascular: tachycardia Respiratory/Chest: lungs clear Abdomen: soft Genitourinary/Rectal: other - stover in Objective no other changes ASTON DILLON Aug 29, 2017 11:43
--- NOTE | 2017-08-29 12:06 | Diagnostic Imaging Report ---
Indication:Elevated Bun and Creatinine. Technique: Grayscale and duplex Doppler imaging of the kidneys performed. Comparison: None Findings: Bilateral renal cysts are present. The left kidney cyst is about 3.2 cm. There is a cyst in the upper pole the left kidney measuring 3.3 cm. Large right renal cyst 7.4 CM noted as well as multiple other smaller cysts. There is no hydronephrosis identified. Kidneys appear fairly symmetric. Right kidney measures between 9 and 10 CM. The left kidney measures just over 10 CM in length. IVC is unremarkable. Leon catheter noted within the urinary bladder. Impression: Bilateral renal cysts Leon catheter
[2017-08-29] MEDS ORDERED: NaCl 3% 500ml 500 ML IV ONE (12:30)
[2017-08-29 12:37] VITALS: BP 124/50
--- NOTE | 2017-08-29 12:53 | Internal Med Progress Note ---
Subjective Date of Service: Aug 29, 2017 Physician Name Gautam Loera Attending Physician Riley Martinez MD Current Medications Medications (Trade) Dose Ordered Sig/Natalya Route PRN Reason Start Time Stop Time Status Last Admin Dose Admin Acetaminophen (Tylenol) 650 mg Q4H PRN ORAL Fever 08/29/17 03:30 09/26/17 23:29 Albuterol/ Ipratropium (DuoNeb 0.5-3(2.5)mg/3ml) 3 ml Q4H PRN HHN Shortness of Breath 08/29/17 03:30 09/01/17 23:29 Dextrose (Dextrose 50%) STAT PRN IV Hypoglycemia 08/29/17 23:30 09/26/17 23:29 Heparin Sodium (Porcine) (Heparin 5000 units/ml) 5,000 units EVERY 12 HOURS SUBQ 08/29/17 09:00 09/27/17 08:59 08/29/17 10:05 Lansoprazole (Prevacid) 30 mg DAILY ORAL 08/29/17 12:00 09/28/17 11:59 Lorazepam (Ativan 2mg/ml 1ml) 1 mg Q4H PRN IV ANXIETY/AGITATION/RESTLESSNESS 08/29/17 03:30 09/04/17 15:23 Lorazepam (Ativan 2mg/ml 1ml) 2 mg Q2H PRN IV SEVERE AGITATION 08/29/17 03:30 09/04/17 15:29 08/29/17 11:02 Metoprolol Tartrate (Lopressor) 2.5 mg Q6H PRN IVP HEART RATE more than 120 bpm 08/29/17 06:15 09/27/17 18:14 Olanzapine (ZyPREXA) 5 mg BEDTIME ORAL 08/29/17 21:00 09/28/17 20:59 Ondansetron HCl (Zofran) 4 mg Q6H PRN IVP Nausea & Vomiting 08/29/17 05:30 09/26/17 23:29 Phenytoin (Dilantin) 300 mg BEDTIME ORAL 08/29/17 21:00 09/28/17 20:59 Polyethylene Glycol (Miralax) 17 gm DAILYPRN PRN ORAL Constipation 08/29/17 23:30 09/26/17 23:29 Potassium Chloride (K-Dur) 40 meq TWICE A DAY ORAL 08/29/17 09:00 09/27/17 11:59 08/29/17 10:05 Allergies: Coded Allergies: CLONAZEPAM (Verified Allergy, Unknown, 08/27/17) HYDROCHLOROTHIAZIDE (Verified Allergy, Unknown, 08/27/17) IBUPROFEN (Verified Allergy, Unknown, 08/27/17) PROPRANOLOL (Verified Allergy, Unknown, 08/27/17) ROS Limited/Unobtainable: Yes Subjective 67 YO F admitted with shortness of breath. Cover for Int Juanjose-Dr Martinez. Objective Last Vital Signs Date Time Temp Pulse Resp B/P (MAP) Pulse Ox O2 Delivery O2 Flow Rate FiO2 08/29/17 12:37 98.1 100 18 124/50 95 Room Air 08/29/17 08:14 2.0 28 General Appearance: WD/WN, agitated EENT: PERRL/EOMI, normal ENT inspection Neck: non-tender, normal alignment, supple, normal inspection Cardiovascular: normal peripheral pulses, normal rate, regular rhythm, no gallop/murmur, no JVD Respiratory/Chest: chest wall non-tender, no respiratory distress, no accessory muscle use, crackles/rales Abdomen: normal bowel sounds, non tender, soft, no organomegaly, no mass, abnormal bowel sounds Extremities: normal range of motion Neurologic: drier belt conveyor II-XII grossly normal, no motor/sensory deficits Laboratory Tests Test 08/28/17 15:54 08/29/17 07:54 Sodium Level 130 mEQ/L (135-145) #L 139 mEQ/L (135-145) Potassium Level 3.6 mEQ/L (3.4-4.9) 3.1 mEQ/L (3.4-4.9) L Chloride Level 90 mEQ/L (98-107) L 101 mEQ/L (98-107) Carbon Dioxide Level 23 mEQ/L (20-30) 18 mEQ/L (20-30) L Anion Gap 17 (5-15) H 20 (5-15) H Blood Urea Nitrogen 6 mg/dL (7-23) L 8 mg/dL (7-23) Creatinine 0.6 mg/dL (0.5-0.9) 0.5 mg/dL (0.5-0.9) Estimat Glomerular Filtration Rate > 60 mL/min (>60) > 60 mL/min (>60) Glucose Level 86 mg/dL (74-106) 55 mg/dL (74-106) L Calcium Level 8.6 mg/dL (8.6-10.2) 8.1 mg/dL (8.6-10.2) L Total Bilirubin 0.5 mg/dL (0.0-1.2) 0.4 mg/dL (0.0-1.2) Aspartate Amino Transf (AST/SGOT) 48 U/L (5-40) H 95 U/L (5-40) H Alanine Aminotransferase (ALT/SGPT) 19 U/L (3-33) 27 U/L (3-33) Alkaline Phosphatase 108 U/L (35-104) H 94 U/L (35-104) Total Protein 6.1 g/dL (6.6-8.7) L 6.1 g/dL (6.6-8.7) L Albumin 4.0 g/dL (3.5-5.2) 3.7 g/dL (3.5-5.2) Globulin 2.1 g/dL 2.4 g/dL Albumin/Globulin Ratio 1.9 (1.0-2.7) 1.5 (1.0-2.7) White Blood Count 6.7 K/UL (4.8-10.8) Red Blood Count 3.69 M/UL (4.20-5.40) L Hemoglobin 11.7 G/DL (12.0-16.0) L Hematocrit 33.5 % (37.0-47.0) L Mean Corpuscular Volume 91 FL (80-99) Mean Corpuscular Hemoglobin 31.8 PG (27.0-31.0) H Mean Corpuscular Hemoglobin Concent 35.0 G/DL (32.0-36.0) Red Cell Distribution Width 12.0 % (11.6-14.8) Platelet Count 284 K/UL (150-450) Mean Platelet Volume 5.3 FL (6.5-10.1) L Neutrophils (%) (Auto) 81.5 % (45.0-75.0) H Lymphocytes (%) (Auto) 8.2 % (20.0-45.0) L Monocytes (%) (Auto) 8.3 % (1.0-10.0) Eosinophils (%) (Auto) 1.3 % (0.0-3.0) Basophils (%) (Auto) 0.8 % (0.0-2.0) Uric Acid 3.9 mg/dL (3.0-7.5) Phosphorus Level 2.6 mg/dL (2.5-4.8) Magnesium Level 2.3 mg/dL (1.7-2.5) Troponin I < 0.30 ng/mL (<=0.30) C-Reactive Protein, Quantitative 10.4 mg/dL (< 0.5) H Pro-B-Type Natriuretic Peptide 1486 pg/mL (0-125) H Intake and Output 08/29/17 08/30/17 19:00 07:00 Intake Total 120 ml Balance 120 ml Intake Oral 120 ml Assessment/Plan Problem List: (1) Seizure disorder Assessment & Plan: Cont Keppra and dilantin (2) Diabetes mellitus, type II (3) HTN (hypertension) Assessment & Plan: Continue lopressor (4) Hypercholesteremia (5) Hypothyroidism Assessment & Plan: TSH pending (6) Dyspnea (7) Hyponatremia Assessment & Plan: Continue hypertonic saline per nephrology Status: progressing GAUTAM LOERA Aug 29, 2017 12:53
--- NOTE | 2017-08-29 13:17 | Pulmonology Progress Note ---
Assessment/Plan Problems: (1) Acute encephalopathy (2) Hyponatremia (3) Psychogenic polydipsia (4) Urinary retention (5) Diabetes mellitus, type II (6) Hypothyroidism Assessment/Plan improving awaiting psych evaluation agaitated at times Subjective ROS Limited/Unobtainable: No Constitutional: Reports: no symptoms HEENT: Repors: no symptoms Respiratory: Reports: no symptoms Cardiovascular: Reports: no symptoms Allergies: Coded Allergies: CLONAZEPAM (Verified Allergy, Unknown, 08/27/17) HYDROCHLOROTHIAZIDE (Verified Allergy, Unknown, 08/27/17) IBUPROFEN (Verified Allergy, Unknown, 08/27/17) PROPRANOLOL (Verified Allergy, Unknown, 08/27/17) Objective Last 24 Hour Vital Signs Date Time Temp Pulse Resp B/P (MAP) Pulse Ox O2 Delivery O2 Flow Rate FiO2 08/29/17 12:37 98.1 100 18 124/50 95 Room Air 08/29/17 08:34 97.2 92 20 111/67 98 Room Air 08/29/17 08:14 97 Nasal Cannula 2.0 28 08/29/17 08:14 Nasal Cannula 2.0 28 08/29/17 08:14 98 18 Nasal Cannula 2.0 28 08/29/17 04:00 98.1 91 22 133/77 97 Nasal Cannula 2.0 08/29/17 04:00 97 08/29/17 00:00 97.9 104 20 143/57 98 Room Air 08/29/17 00:00 101 08/28/17 23:00 86 20 129/30 98 Nasal Cannula 2.0 08/28/17 22:00 106 20 120/30 98 Nasal Cannula 2.0 08/28/17 21:00 104 20 110/30 98 Nasal Cannula 2.0 08/28/17 20:00 108 08/28/17 20:00 98.0 121 20 148/71 99 Nasal Cannula 2.0 08/28/17 19:30 Nasal Cannula 2.0 28 08/28/17 19:30 102 18 Nasal Cannula 2.0 28 08/28/17 19:30 98 Nasal Cannula 2.0 28 08/28/17 19:13 135 153/58 08/28/17 19:00 121 20 153/58 99 Nasal Cannula 2.0 08/28/17 18:00 114 20 140/82 99 Nasal Cannula 2.0 08/28/17 17:00 101 20 113/45 99 Nasal Cannula 2.0 08/28/17 16:00 98 08/28/17 16:00 98.1 96 20 127/59 100 Nasal Cannula 2.0 08/28/17 15:00 99 20 132/27 100 Nasal Cannula 2.0 08/28/17 14:00 99 20 158/86 100 Nasal Cannula 2.0 Intake and Output 08/29/17 08/30/17 19:00 07:00 Intake Total 120 ml Balance 120 ml Intake Oral 120 ml # Bowel Movements 2 General Appearance: WD/WN HEENT: normocephalic, anicteric Respiratory/Chest: chest wall non-tender, lungs clear Breasts: no masses Cardiovascular: normal peripheral pulses Genitourinary: normal external genitalia Extremities: no cyanosis Skin: no rash, no ulcers Neurologic/Psychiatric: no motor/sensory deficits Lymphatic: no neck adenopathy Laboratory Tests 08/28/17 15:54: Sodium Level 130#L, Potassium Level 3.6, Chloride Level 90L, Carbon Dioxide Level 23, Anion Gap 17H, Blood Urea Nitrogen 6L, Creatinine 0.6, Estimat Glomerular Filtration Rate > 60, Glucose Level 86, Calcium Level 8.6, Total Bilirubin 0.5, Aspartate Amino Transf (AST/SGOT) 48H, Alanine Aminotransferase ( ALT/SGPT) 19, Alkaline Phosphatase 108H, Total Protein 6.1L, Albumin 4.0, Globulin 2.1, Albumin/Globulin Ratio 1.9 08/29/17 07:54: Sodium Level 139, Potassium Level 3.1L, Chloride Level 101, Carbon Dioxide Level 18L, Anion Gap 20H, Blood Urea Nitrogen 8, Creatinine 0.5, Estimat Glomerular Filtration Rate > 60, Glucose Level 55L, Calcium Level 8.1L, Total Bilirubin 0.4, Aspartate Amino Transf (AST/SGOT) 95H, Alanine Aminotransferase ( ALT/SGPT) 27, Alkaline Phosphatase 94, Total Protein 6.1L, Albumin 3.7, Globulin 2.4, Albumin/Globulin Ratio 1.5, White Blood Count 6.7, Red Blood Count 3.69L, Hemoglobin 11.7L, Hematocrit 33.5L, Mean Corpuscular Volume 91, Mean Corpuscular Hemoglobin 31.8H, Mean Corpuscular Hemoglobin Concent 35.0, Red Cell Distribution Width 12.0, Platelet Count 284, Mean Platelet Volume 5.3L , Neutrophils (%) (Auto) 81.5H, Lymphocytes (%) (Auto) 8.2L, Monocytes (%) (Auto ) 8.3, Eosinophils (%) (Auto) 1.3, Basophils (%) (Auto) 0.8, Uric Acid 3.9, Phosphorus Level 2.6, Magnesium Level 2.3, Troponin I < 0.30, C-Reactive Protein , Quantitative 10.4H, Pro-B-Type Natriuretic Peptide 1486H Current Medications Medications (Trade) Dose Ordered Sig/Natalya Route PRN Reason Start Time Stop Time Status Last Admin Dose Admin Acetaminophen (Tylenol) 650 mg Q4H PRN ORAL Fever 08/29/17 03:30 09/26/17 23:29 Albuterol/ Ipratropium (DuoNeb 0.5-3(2.5)mg/3ml) 3 ml Q4H PRN HHN Shortness of Breath 08/29/17 03:30 09/01/17 23:29 Dextrose (Dextrose 50%) STAT PRN IV Hypoglycemia 08/29/17 23:30 09/26/17 23:29 Heparin Sodium (Porcine) (Heparin 5000 units/ml) 5,000 units EVERY 12 HOURS SUBQ 08/29/17 09:00 09/27/17 08:59 08/29/17 10:05 Lansoprazole (Prevacid) 30 mg DAILY ORAL 08/29/17 12:00 09/28/17 11:59 08/29/17 13:09 Lorazepam (Ativan 2mg/ml 1ml) 1 mg Q4H PRN IV ANXIETY/AGITATION/RESTLESSNESS 08/29/17 03:30 09/04/17 15:23 Lorazepam (Ativan 2mg/ml 1ml) 2 mg Q2H PRN IV SEVERE AGITATION 08/29/17 03:30 09/04/17 15:29 08/29/17 13:09 Metoprolol Tartrate (Lopressor) 2.5 mg Q6H PRN IVP HEART RATE more than 120 bpm 08/29/17 06:15 09/27/17 18:14 Olanzapine (ZyPREXA) 5 mg BEDTIME ORAL 08/29/17 21:00 09/28/17 20:59 Ondansetron HCl (Zofran) 4 mg Q6H PRN IVP Nausea & Vomiting 08/29/17 05:30 09/26/17 23:29 Phenytoin (Dilantin) 300 mg BEDTIME ORAL 08/29/17 21:00 09/28/17 20:59 Polyethylene Glycol (Miralax) 17 gm DAILYPRN PRN ORAL Constipation 08/29/17 23:30 09/26/17 23:29 Potassium Chloride (K-Dur) 40 meq TWICE A DAY ORAL 08/29/17 09:00 09/27/17 11:59 08/29/17 10:05 ARIC DOE Aug 29, 2017 13:17
[2017-08-29 15:31] VITALS: BP 150/90
[2017-08-29] MEDS ORDERED: Miralax 17gm pkt ORAL PRN ×2 (18:00→23:30)
--- NOTE | 2017-08-29 19:49 | Consultation ---
History of Present Illness General Chief Complaint: Dyspnea/Respdistress Present Illness HPI the patient is a 67-year-old female, presents with chief complaint of shortness of breath. the pt is psychotic and has been confused. the pt is unable to provide any hx due to cognitive impairment. the pt has significant impairment of cognition. the pt has psychomotor retardation. Allergies: Coded Allergies: CLONAZEPAM (Verified Allergy, Unknown, 08/27/17) HYDROCHLOROTHIAZIDE (Verified Allergy, Unknown, 08/27/17) IBUPROFEN (Verified Allergy, Unknown, 08/27/17) PROPRANOLOL (Verified Allergy, Unknown, 08/27/17) Medication History Scheduled Alendronate Sodium* (Fosamax*), 70 MG ORAL ONCE A WEEK, (Reported) Aspirin* (Aspirin*), 81 MG ORAL DAILY, (Reported) Atorvastatin Calcium* (Atorvastatin Calcium*), 10 MG ORAL BEDTIME, (Reported) Calcium Carb & Cit/Vitamin D3 (Calcium + D3 Er Tablet), 600 MG PO DAILY, ( Reported) Levetiracetam (Levetiracetam), 1,000 MG ORAL TWICE A DAY, (Reported) Meloxicam* (Meloxicam*), 7.5 MG PO DAILY, (Reported) Metformin Hcl* (Metformin Hcl*), 500 MG ORAL TWICE A DAY, (Reported) Metoprolol Tartrate* (Metoprolol Tartrate*), 12.5 MG ORAL BID, (Reported) Olanzapine* (Zyprexa*), 20 MG ORAL BEDTIME, (Reported) Omeprazole (Omeprazole), 20 MG ORAL BID, (Reported) Oxybutynin Chloride (Oxybutynin Chloride), 5 MG ORAL DAILY, (Reported) Phenytoin Sodium Extended* (Phenytoin Sodium Extended*), 100 MG ORAL THREE TIMES A DAY, (Reported) Polyethylene Glycol 3350* (Miralax*), Unknown Dose ORAL DAILY, (Reported) Tamsulosin Hcl (Tamsulosin Hcl*), 0.4 MG ORAL BEDTIME, (Reported) Scheduled PRN Temazepam* (Temazepam*), 15 MG ORAL BEDTIME PRN for Insomnia, (Reported) Miscellaneous Medications Bacitracin Zinc/Polymyx B Sulf (Double Antibiotic Ointment), Unknown Dose TP, ( Reported) Cyanocobalamin (Vitamin B-12) (Vitamin B12), 500 MCG PO, (Reported) Estradiol (Estring), 1 EACH VG, (Reported) Vitamin B Complex & Vit C No.4 (Super B Complex), Unknown Dose PO, (Reported) Patient History Limited by: medical condition History Provided By: Patient, Significant Other, Medical Record, PMD Healthcare decision maker Resuscitation status Advanced Directive on File Past Medical/Surgical History Past Medical/Surgical History: (1) Hyponatremia (2) Psychogenic polydipsia (3) Dyspnea (4) CHF (congestive heart failure) (5) Acute encephalopathy (6) Urinary retention (7) Diabetes mellitus, type II (8) Hypercholesteremia (9) Hypothyroidism (10) Seizure disorder (11) HTN (hypertension) Review of Systems Psychiatric: Reports: anxiety, hallucinations Physical Exam General Appearance: no apparent distress, lethargic, confused, cachetic Neurologic: responsive, disoriented, depressed affect Last 24 Hour Vital Signs Date Time Temp Pulse Resp B/P (MAP) Pulse Ox O2 Delivery O2 Flow Rate FiO2 08/29/17 15:31 97.0 88 20 150/90 98 Room Air 08/29/17 12:37 98.1 100 18 124/50 95 Room Air 08/29/17 12:00 92 08/29/17 08:34 97.2 92 20 111/67 98 Room Air 08/29/17 08:14 97 Nasal Cannula 2.0 28 08/29/17 08:14 Nasal Cannula 2.0 28 08/29/17 08:14 98 18 Nasal Cannula 2.0 28 08/29/17 08:00 98 08/29/17 04:00 98.1 91 22 133/77 97 Nasal Cannula 2.0 08/29/17 04:00 97 08/29/17 00:00 97.9 104 20 143/57 98 Room Air 08/29/17 00:00 101 08/28/17 23:00 86 20 129/30 98 Nasal Cannula 2.0 08/28/17 22:00 106 20 120/30 98 Nasal Cannula 2.0 08/28/17 21:00 104 20 110/30 98 Nasal Cannula 2.0 08/28/17 20:00 108 08/28/17 20:00 98.0 121 20 148/71 99 Nasal Cannula 2.0 Intake and Output 08/29/17 08/30/17 19:00 07:00 Intake Total 480 ml Output Total 500 ml Balance -20 ml Intake Oral 480 ml Output Urine Total 500 ml # Bowel Movements 3 Laboratory Tests Test 08/29/17 07:54 White Blood Count 6.7 K/UL (4.8-10.8) Red Blood Count 3.69 M/UL (4.20-5.40) L Hemoglobin 11.7 G/DL (12.0-16.0) L Hematocrit 33.5 % (37.0-47.0) L Mean Corpuscular Volume 91 FL (80-99) Mean Corpuscular Hemoglobin 31.8 PG (27.0-31.0) H Mean Corpuscular Hemoglobin Concent 35.0 G/DL (32.0-36.0) Red Cell Distribution Width 12.0 % (11.6-14.8) Platelet Count 284 K/UL (150-450) Mean Platelet Volume 5.3 FL (6.5-10.1) L Neutrophils (%) (Auto) 81.5 % (45.0-75.0) H Lymphocytes (%) (Auto) 8.2 % (20.0-45.0) L Monocytes (%) (Auto) 8.3 % (1.0-10.0) Eosinophils (%) (Auto) 1.3 % (0.0-3.0) Basophils (%) (Auto) 0.8 % (0.0-2.0) Sodium Level 139 mEQ/L (135-145) Potassium Level 3.1 mEQ/L (3.4-4.9) L Chloride Level 101 mEQ/L (98-107) Carbon Dioxide Level 18 mEQ/L (20-30) L Anion Gap 20 (5-15) H Blood Urea Nitrogen 8 mg/dL (7-23) Creatinine 0.5 mg/dL (0.5-0.9) Estimat Glomerular Filtration Rate > 60 mL/min (>60) Glucose Level 55 mg/dL (74-106) L Uric Acid 3.9 mg/dL (3.0-7.5) Calcium Level 8.1 mg/dL (8.6-10.2) L Phosphorus Level 2.6 mg/dL (2.5-4.8) Magnesium Level 2.3 mg/dL (1.7-2.5) Total Bilirubin 0.4 mg/dL (0.0-1.2) Aspartate Amino Transf (AST/SGOT) 95 U/L (5-40) H Alanine Aminotransferase (ALT/SGPT) 27 U/L (3-33) Alkaline Phosphatase 94 U/L (35-104) Troponin I < 0.30 ng/mL (<=0.30) C-Reactive Protein, Quantitative 10.4 mg/dL (< 0.5) H Pro-B-Type Natriuretic Peptide 1486 pg/mL (0-125) H Total Protein 6.1 g/dL (6.6-8.7) L Albumin 3.7 g/dL (3.5-5.2) Globulin 2.4 g/dL Albumin/Globulin Ratio 1.5 (1.0-2.7) Height (Feet): 5 Height (Inches): 0.00 Weight (Pounds): 102 Medications Current Medications Medications (Trade) Dose Ordered Sig/Natalya Route PRN Reason Start Time Stop Time Status Last Admin Dose Admin Acetaminophen (Tylenol) 650 mg Q4H PRN ORAL T>100.5 08/29/17 18:00 09/26/17 17:59 Albuterol/ Ipratropium (DuoNeb 0.5-3(2.5)mg/3ml) 3 ml Q4H PRN HHN Shortness of Breath 08/29/17 18:00 09/01/17 17:59 Dextrose (Dextrose 50%) STAT PRN IV Hypoglycemia 08/29/17 18:00 09/26/17 17:59 Heparin Sodium (Porcine) (Heparin 5000 units/ml) 5,000 units EVERY 12 HOURS SUBQ 08/29/17 21:00 09/27/17 08:59 Lorazepam (Ativan 2mg/ml 1ml) 1 mg Q4H PRN IV ANXIETY/AGITATION/RESTLESSNESS 08/29/17 19:00 09/04/17 18:59 Lorazepam (Ativan 2mg/ml 1ml) 2 mg Q2H PRN IV SEVERE AGITATION(BREAKTHROUGH) 08/29/17 18:00 09/04/17 17:59 Olanzapine (ZyPREXA) 5 mg BEDTIME ORAL 08/29/17 21:00 09/28/17 20:59 Ondansetron HCl (Zofran) 4 mg Q6H PRN IVP Nausea & Vomiting 08/29/17 18:00 09/26/17 17:59 Pantoprazole (Protonix) 40 mg DAILY ORAL 08/30/17 09:00 09/29/17 08:59 Phenytoin (Dilantin) 300 mg BEDTIME ORAL 08/29/17 21:00 09/28/17 20:59 Polyethylene Glycol (Miralax) 17 gm DAILYPRN PRN ORAL Constipation 08/29/17 18:00 09/26/17 17:59 Potassium Chloride (K-Dur) 40 meq TWICE A DAY ORAL 08/30/17 09:00 09/29/17 08:59 Assessment/Plan Status: unchanged Assessment/Plan psychotic d/o -Bennie Gan M.D. Aug 29, 2017 19:49
[2017-08-29 20:00] VITALS: BP 157/73
[2017-08-29] MEDS ORDERED: Phenytoin 100mg cap ORAL SCH ×2 (21:00)
[2017-08-29] MEDS: Heparin 5000 units/ml inj SUBQ SCH (21:52)
[2017-08-30] VITALS: BP 125/55
[2017-08-30 03:47] VITALS: BP 138/100
[2017-08-30 07:12] LABS: EOSINOPHILS % (AUTO) 2.6 % (0.0-3.0); LYMPHOCYTES % (AUTO) 23.8 % (20.0-45.0); MEAN CORPUSCULAR HEMOGLOBIN 31.4 PG (27.0-31.0); MEAN CORPUSCULAR HGB CONC 33.5 G/DL (32.0-36.0); MEAN CORPUSCULAR VOLUME 94 FL (80-99); MEAN PLATELET VOLUME 5.2 FL (6.5-10.1); MONOCYTES % (AUTO) 10.5 % (1.0-10.0); NEUTROPHILS % (AUTO) 62.1 % (45.0-75.0); PLATELET COUNT 293 K/UL (150-450); RED BLOOD COUNT 3.72 M/UL (4.20-5.40); RED CELL DISTRIBUTION WIDTH 12.3 % (11.6-14.8); WHITE BLOOD COUNT 7.9 K/UL (4.8-10.8)
[2017-08-30 07:50] LABS: ALANINE AMINOTRANSFERASE 37 U/L (3-33); ALBUMIN/GLOBULIN RATIO 1.4 (1.0-2.7); ANION GAP 18 (5-15); ASPARTATE AMINO TRANSFERASE 96 U/L (5-40); CALCIUM 9.1 mg/dL (8.6-10.2); CARBON DIOXIDE 20 mEQ/L (20-30); CHLORIDE 107 mEQ/L (98-107); CREATININE 0.6 mg/dL (0.5-0.9); CRP QUANT 8.8 mg/dL (< 0.5); GLOMERULAR FILTRATION RATE > 60 mL/min (>60); HEMOLYSIS 0; MAGNESIUM 2.1 mg/dL (1.7-2.5); PHOSPHORUS 2.4 mg/dL (2.5-4.8); POTASSIUM 3.7 mEQ/L (3.4-4.9); SODIUM 145 mEQ/L (135-145); TOTAL PROTEIN 6.8 g/dL (6.6-8.7); URIC ACID 3.5 mg/dL (3.0-7.5)
[2017-08-30 08:00] VITALS: BP 144/63
[2017-08-30] MEDS: Heparin 5000 units/ml inj SUBQ SCH (10:04)
--- NOTE | 2017-08-30 11:15 | General Progress Note ---
Assessment/Plan Status: stable Status Narrative stable from renal stand- lytes now normalized Assessment/Plan Low Na likely Psychogenic vs SIADH DM High Cholestrol Psych disease Urinary retention GERD Sz disorders been on dilantin and keppra Plan: DC stover adjust psych meds no LASIX PO fluid restriction Monitor lytes K supplement resume dilantin ? DC planning? Subjective ROS Limited/Unobtainable: No Allergies: Coded Allergies: CLONAZEPAM (Verified Allergy, Unknown, 08/27/17) HYDROCHLOROTHIAZIDE (Verified Allergy, Unknown, 08/27/17) IBUPROFEN (Verified Allergy, Unknown, 08/27/17) PROPRANOLOL (Verified Allergy, Unknown, 08/27/17) Objective Last 24 Hour Vital Signs Date Time Temp Pulse Resp B/P (MAP) Pulse Ox O2 Delivery O2 Flow Rate FiO2 08/30/17 08:00 97.7 96 17 144/63 98 Room Air 08/30/17 07:13 81 17 Room Air 08/30/17 07:13 97 Room Air 08/30/17 07:13 Room Air 08/30/17 03:47 97.5 85 20 138/100 98 Room Air 08/30/17 00:00 97.9 86 18 125/55 95 Room Air 08/29/17 20:02 Room Air 08/29/17 20:02 96 Room Air 08/29/17 20:01 87 20 Room Air 21 08/29/17 20:00 98.1 89 20 157/73 95 Room Air 08/29/17 15:31 97.0 88 20 150/90 98 Room Air 08/29/17 12:37 98.1 100 18 124/50 95 Room Air 08/29/17 12:00 92 Laboratory Tests 08/30/17 05:15: White Blood Count 7.9, Red Blood Count 3.72L, Hemoglobin 11.7L, Hematocrit 34.8L , Mean Corpuscular Volume 94, Mean Corpuscular Hemoglobin 31.4H, Mean Corpuscular Hemoglobin Concent 33.5, Red Cell Distribution Width 12.3, Platelet Count 293, Mean Platelet Volume 5.2L, Neutrophils (%) (Auto) 62.1, Lymphocytes ( %) (Auto) 23.8, Monocytes (%) (Auto) 10.5H, Eosinophils (%) (Auto) 2.6, Basophils (%) (Auto) 1.0, Sodium Level 145, Potassium Level 3.7, Chloride Level 107, Carbon Dioxide Level 20, Anion Gap 18H, Blood Urea Nitrogen 6L, Creatinine 0.6, Estimat Glomerular Filtration Rate > 60, Glucose Level 91, Hemoglobin A1c 5.1, Uric Acid 3.5, Calcium Level 9.1, Phosphorus Level 2.4L, Magnesium Level 2.1, Total Bilirubin 0.3, Aspartate Amino Transf (AST/SGOT) 96H, Alanine Aminotransferase (ALT/SGPT) 37H, Alkaline Phosphatase 99, C-Reactive Protein, Quantitative 8.8H, Pro-B-Type Natriuretic Peptide 1377H, Total Protein 6.8, Albumin 4.0, Globulin 2.8, Albumin/Globulin Ratio 1.4 Height (Feet): 5 Height (Inches): 0.00 Weight (Pounds): 99 General Appearance: no apparent distress Objective no other changes ASTON DILLON Aug 30, 2017 11:15
[2017-08-30 12:00] VITALS: BP 154/74
--- NOTE | 2017-08-30 12:16 | Wound Care Consultation ---
Wound Assessment Wound Assessment #1: Wound Number: 1 Wound Present on Admission: Yes New Wound: No Status Change of Wound: No Wound Location Body Site Modif: right Wound Location Body Site: finger - 2nd pointer finger Wound Type: traumatic injury - self inflicted bites Emily Test: Does not Emily Wound Thickness: Partial Thickness Wound Length: 3 Wound Width: 1.5 Percent of Wound Black/Brown: 100 - noted scab appearing to site. Other Colors Identified: noted discolored finger nail, brown color. Wound Drainage Description: Serosanguineous Wound Drainage Amount: Scant Wound Drainage Odor: None/Absent Tissue Surrounding Wound: Erythemic Wound General Appearance: Reddened Wound Assessment #2: Wound Number: 2 Wound Present on Admission: Yes New Wound: No Status Change of Wound: No Wound Location Body Site Modif: right Wound Location Body Site: finger - 3rd middle finger Wound Type: traumatic injury - self inflicted bites scattered. Emily Test: Does not Emily Wound Thickness: Partial Thickness Percent of Wound [place]/Red: 50 Percent of Wound Bed Yellow/Wh: 25 - yellow scab Percent of Wound Black/Brown: 25 - yellow scab Wound Drainage Description: Serosanguineous Wound Drainage Amount: Scant Wound Drainage Odor: None/Absent Tissue Surrounding Wound: Erythemic - with scabs Wound General Appearance: Reddened Wound Assessment #3: Wound Number: 3 Wound Present on Admission: Yes New Wound: No Status Change of Wound: No Wound Location Body Site Modif: right Wound Location Body Site: finger - thumb Wound Type: blister Emily Test: Does not Emily Blisters: Blister w/ Intact Cap - noted dry,reabsorbing Wound Thickness: Partial Thickness Wound Length: 1.5 Wound Width: 1.5 Percent of Wound [place]/Red: 100 Other Colors Identified: noted yelloish/white drying cap Wound Drainage Amount: None Wound Drainage Odor: None/Absent Tissue Surrounding Wound: Intact Wound Assessment #4: Wound Number: 4 Wound Present on Admission: Yes New Wound: No Status Change of Wound: No Wound Location Body Site Modif: left Wound Location Body Site: finger - 3rd middle finger Wound Type: traumatic injury - self inflicted bites. Emily Test: Does not Emily Wound Thickness: Partial Thickness Wound Length: 3.0 Wound Width: 1.0 Percent of Wound [place]/Red: 50 Percent of Wound Black/Brown: 50 - scab formation Wound Drainage Description: Serosanguineous Wound Drainage Amount: Scant Wound Drainage Odor: None/Absent Tissue Surrounding Wound: Erythemic Wound General Appearance: Reddened Wound Assessment #5: Wound Number: 5 Wound Present on Admission: Yes New Wound: No Status Change of Wound: No Wound Location Body Site Modif: left Wound Location Body Site: finger - 2nd pointer finger Wound Type: traumatic injury - self inflicted bites Emily Test: Does not Emily Wound Thickness: Partial Thickness Wound Length: 2.0 Wound Width: 1.0 Percent of Wound [place]/Red: 50 Percent of Wound Black/Brown: 50 - scab formation. Wound Drainage Description: Serosanguineous Wound Drainage Amount: Scant Wound Drainage Odor: None/Absent Tissue Surrounding Wound: Erythemic - with scabs Wound General Appearance: Reddened Wound Assessment #6: Wound Number: 6 Wound Present on Admission: Yes New Wound: No Status Change of Wound: No Wound Location Body Site: frontal region - forehead Wound Type: scab - possible scratch Emily Test: Does not Emily Wound Thickness: Partial Thickness Wound Length: 1.0 Wound Width: 1.0 Percent of Wound Black/Brown: 100 - scab Wound Drainage Amount: None Wound Drainage Odor: None/Absent Tissue Surrounding Wound: Intact Wound General Appearance: Open to air, Clean/Dry Wound Comment #1 forehead scab #2 right 2nd finger (pointer) self inflicted biting. #3 right 3rd finger (middle) self inflicted biting. #4 left 3rd finger (middle) self inflicted biting #5 left 2nd finger (pointer) self inflicted biting. #6 right thumb blister with cap . upon assessment noted finger sites with dry scabs appearing, scant serosanguineous drainage present, overall sites are showing signs of resolving. per nursing staff resident was biting fingers. sites remains clean and dry, however noted patient attempting to remove dressings, reminded patient to not remove dressings, sites reinforced at this time patient remains with dry dressings intact. Recommendation. -Local wound care as ordered. -Keep clean and dry. -Remind patient not to touch affected sites and remain with dressings in place. -Turn and reposition. -Assess and notify MD if any further changes of condition to skin is noted. -observe sites for any evidence of copious drainage and notify MD. overall sites remain dry at this time. JARAD KNAPP Aug 30, 2017 12:16
--- NOTE | 2017-08-30 21:33 | Pulmonology Progress Note ---
Assessment/Plan Problems: (1) Acute encephalopathy (2) Hyponatremia (3) Psychogenic polydipsia (4) Urinary retention (5) Diabetes mellitus, type II (6) Hypothyroidism Assessment/Plan improving agaitated at times dc planning outpatient psych f/u Subjective ROS Limited/Unobtainable: No Constitutional: Reports: no symptoms HEENT: Repors: no symptoms Respiratory: Reports: no symptoms Allergies: Coded Allergies: CLONAZEPAM (Verified Allergy, Unknown, 08/27/17) HYDROCHLOROTHIAZIDE (Verified Allergy, Unknown, 08/27/17) IBUPROFEN (Verified Allergy, Unknown, 08/27/17) PROPRANOLOL (Verified Allergy, Unknown, 08/27/17) Objective Last 24 Hour Vital Signs Date Time Temp Pulse Resp B/P (MAP) Pulse Ox O2 Delivery O2 Flow Rate FiO2 08/30/17 12:00 98.1 72 18 154/74 97 Room Air 08/30/17 08:00 97.7 96 17 144/63 98 Room Air 08/30/17 07:13 81 17 Room Air 08/30/17 07:13 97 Room Air 08/30/17 07:13 Room Air 08/30/17 03:47 97.5 85 20 138/100 98 Room Air 08/30/17 00:00 97.9 86 18 125/55 95 Room Air General Appearance: WD/WN Respiratory/Chest: chest wall non-tender, lungs clear Cardiovascular: normal peripheral pulses, normal rate Abdomen: soft, non tender Extremities: no cyanosis Neurologic/Psychiatric: history tutor II-XII grossly normal, no motor/sensory deficits Laboratory Tests 08/30/17 05:15: White Blood Count 7.9, Red Blood Count 3.72L, Hemoglobin 11.7L, Hematocrit 34.8L , Mean Corpuscular Volume 94, Mean Corpuscular Hemoglobin 31.4H, Mean Corpuscular Hemoglobin Concent 33.5, Red Cell Distribution Width 12.3, Platelet Count 293, Mean Platelet Volume 5.2L, Neutrophils (%) (Auto) 62.1, Lymphocytes ( %) (Auto) 23.8, Monocytes (%) (Auto) 10.5H, Eosinophils (%) (Auto) 2.6, Basophils (%) (Auto) 1.0, Sodium Level 145, Potassium Level 3.7, Chloride Level 107, Carbon Dioxide Level 20, Anion Gap 18H, Blood Urea Nitrogen 6L, Creatinine 0.6, Estimat Glomerular Filtration Rate > 60, Glucose Level 91, Hemoglobin A1c 5.1, Uric Acid 3.5, Calcium Level 9.1, Phosphorus Level 2.4L, Magnesium Level 2.1, Total Bilirubin 0.3, Aspartate Amino Transf (AST/SGOT) 96H, Alanine Aminotransferase (ALT/SGPT) 37H, Alkaline Phosphatase 99, C-Reactive Protein, Quantitative 8.8H, Pro-B-Type Natriuretic Peptide 1377H, Total Protein 6.8, Albumin 4.0, Globulin 2.8, Albumin/Globulin Ratio 1.4 ARIC DOE Aug 30, 2017 21:33
--- NOTE | 2017-08-31 10:24 | Discharge Summary ---
Discharge Summary Hospital Course Date of Admission Aug 27, 2017 at 21:26 Date of Discharge Aug 30, 2017 at 15:02 Admitting Diagnosis CHF HPI Ena Muir is a 67 year old female who was admitted on Aug 27, 2017 at 21:26 for Congestive Heart Failure Hospital Course [id number] Discharge Discharge Disposition Patient was discharged to snf Discharge Diagnoses: Marisela Leslie NP Aug 31, 2017 10:24
--- NOTE | 2017-08-31 12:37 | General Progress Note ---
Assessment/Plan Status: stable, progressing Subjective Date patient seen: Aug 30, 2017 Constitutional: Reports: malaise, weakness Neurologic/Psychiatric: Reports: anxiety, depressed, emotional problems Allergies: Coded Allergies: CLONAZEPAM (Verified Allergy, Unknown, 08/27/17) HYDROCHLOROTHIAZIDE (Verified Allergy, Unknown, 08/27/17) IBUPROFEN (Verified Allergy, Unknown, 08/27/17) PROPRANOLOL (Verified Allergy, Unknown, 08/27/17) Subjective not cooperative Objective Height (Feet): 5 Height (Inches): 0.00 Weight (Pounds): 99 General Appearance: no apparent distress, alert, confused, cachetic Neurologic: alert, responsive, disoriented, depressed affect Bennie Valentin M.D. Aug 31, 2017 12:37
--- NOTE | 2017-08-31 12:38 | General Progress Note ---
Assessment/Plan Status: unchanged Subjective Date patient seen: Aug 28, 2017 Constitutional: Reports: malaise, weakness Neurologic/Psychiatric: Reports: anxiety, depressed, emotional problems Allergies: Coded Allergies: CLONAZEPAM (Verified Allergy, Unknown, 08/27/17) HYDROCHLOROTHIAZIDE (Verified Allergy, Unknown, 08/27/17) IBUPROFEN (Verified Allergy, Unknown, 08/27/17) PROPRANOLOL (Verified Allergy, Unknown, 08/27/17) All Systems: reviewed and negative except above Subjective not cooperative Objective Height (Feet): 5 Height (Inches): 0.00 Weight (Pounds): 99 General Appearance: no apparent distress, lethargic, confused, cachetic Neurologic: disoriented, unresponsive, depressed affect Bennie Valentin M.D. Aug 31, 2017 12:38
--- NOTE | 2017-09-01 06:00 | Discharge Summary 2 SIG ---
DATE OF ADMISSION: 08/27/2017 DATE OF DISCHARGE: 08/30/2017 ATTENDING PHYSICIAN: Riley Martinez M.D. CONSULTANTS: 1. Amparo Weller M.D. 2. Momo Jasso M.D. 3. Bennie Valentin M.D. 4. Pb Mahmood M.D. Brief Hospital Course: The patient is a 67-year-old female who is a resident of [facility], residence for elderly and retired. According to staff, the patient became short of breath and was taken to [facility]. She has a history of dementia, schizophrenia, and psychogenic polydipsia. She had multiple visits to ICU and hospital for hyponatremia. She was sent to SNF and advised to limit water intake; however, the patient allegedly finds ways to drink water. On evaluation at ED, sodium was 108 and chloride was 71. She was admitted to ICU for metabolic encephalopathy caused by hyponatremia. She was given 3% saline solution and p.o. fluid restriction. The patient has seizure disorder and was placed on seizure precautions and was continued on Dilantin and Keppra. Phenytoin level was 12. She underwent psychiatric evaluation. The patient is confused and has cognitive impairment with psychomotor retardation. She was given olanzapine 5 mg daily at bedtime. Potassium was repleted. She came in with scab and self-inflicted bite rajan on the fingers. She was given wound care. Sodium level improved. Renal ultrasound showed bilateral renal cyst. Echocardiogram showed EF of 65% to 70%. She was eventually discharged back to [facility]. FINAL DIAGNOSES: 1. Acute metabolic encephalopathy. 2. Hyponatremia. 3. Psychogenic polydipsia. 4. Urinary retention. 5. Diabetes mellitus, type 2. 6. Hypothyroidism. 7. Gastroesophageal reflux disease. 8. Seizure disorder. 9. Psychotic disorder. 10. Osteoporosis. 11. Hypokalemia. 12. Premature ventricular complexes. DISPOSITION: The patient was discharged back to [facility]. DISCHARGE MEDICATIONS: Refer to medication list. Amparo Weller M.D. I have been assigned to dictate discharge summary on this account and I was not involved in the patient's management. Marisela Leslie N.P. DR: Stuart JOB#: [id number] CC: JOHN
[2017-09-03 00:39] LABS: FREE TRIIODOTHYRONINE 2.8 pg/mL (2.0-4.4)
== END 2017-08-30 15:02 | DRG 640 ==
LOC: EDBD 19:40 → EMR 20:05 → EDBEDREQSVC 21:01 → ICU 21:26 → EDBEDREQ 22:15 → 2E 08-28 23:41 → 4E 08-29 17:49
DX: E87.1 Hypo-osmolality and hyponatremia (principal); G93.41 Metabolic encephalopathy; F20.0 Paranoid schizophrenia; F50.89 Other specified eating disorder; R33.9 Retention of urine, unspecified; E11.9 Type 2 diabetes mellitus without complications; K21.9 Gastro-esophageal reflux disease without esophagitis; G40.909 Epilepsy, unspecified, not intractable, without status epilepticus; E03.9 Hypothyroidism, unspecified; E87.6 Hypokalemia; I10 Essential (primary) hypertension; E78.00 Pure hypercholesterolemia, unspecified; R63.1 Polydipsia; M81.0 Age-related osteoporosis without current pathological fracture; I49.3 Ventricular premature depolarization; Z88.6 Allergy status to analgesic agent; Z88.8 Allergy status to other drugs, medicaments and biological substances; Z87.891 Personal history of nicotine dependence; S60.470A Other superficial bite of right index finger, initial encounter; S60.472A Other superficial bite of right middle finger, initial encounter; S60.471A Other superficial bite of left index finger, initial encounter; S60.473A Other superficial bite of left middle finger, initial encounter; X83.8XXA Intentional self-harm by other specified means, initial encounter
CPT/HCPCS: 36415; 71010; 76775; 80053; 80061; 80069; 80185; 81001; 82533; 82550; 82553; 82962; 83036; 83735; 83880; 83930; 83935; 84100; 84300; 84439; 84443; 84481; 84484; 84550; 85025; 86140; 87081; 93005; 93306; 93970; 94664; 94760; 99285; J2405; J8499